=== PATIENT | male | born 1985 | race Caucasian/White ===

== ENCOUNTER 2023-11-19 02:45 | Emergency (ER) | payer OTHER ==
[~2023-11-19] VITALS: Ht 185.4 cm; Wt 90.7 kg
[2023-11-19 02:51] VITALS: BP 148/88; PULSE 84; RESP 18; TEMP 98; O2SAT 98
[2023-11-19 03:15] VITALS: BP 148/88; PULSE 84; RESP 18; TEMP 98; O2SAT 98
== END 2023-11-19 03:15 ==
LOC: MED 02:45
DX: Z02.89 Encounter for other administrative examinations (principal)
CPT/HCPCS: 99283